=== PATIENT | female | born 1955 | race Caucasian/White ===

== ENCOUNTER → 2016-12-22 | Outpatient (CLI) | payer MEDICARE | END | disposition home or self-care (01) | LOC: PCVCIMAG 13:29 | PROVIDERS: ATTEND Internal Medicine Cardiovascular Disease | DX: I25.10 Atherosclerotic heart disease of native coronary artery without angina pectoris (principal); I10 Essential (primary) hypertension; E78.5 Hyperlipidemia, unspecified; I73.9 Peripheral vascular disease, unspecified; I65.23 Occlusion and stenosis of bilateral carotid arteries | CPT/HCPCS: 80061; 93005; 93880; G0463 ==

== ENCOUNTER → 2017-01-22 | Outpatient (CLI) | payer MEDICARE ==
[~2017-01-22] MED LIST: AMINOPHYLLINE 250 MG/10 ML VIAL. ONE; REGADENOSON 0.4 MG/5 ML DISP.SYRIN. IV ONE
== END | disposition home or self-care (01) ==
LOC: PCVCIMAG 08:09
PROVIDERS: ATTEND Internal Medicine Cardiovascular Disease
DX: I25.10 Atherosclerotic heart disease of native coronary artery without angina pectoris (principal); R07.9 Chest pain, unspecified; I73.9 Peripheral vascular disease, unspecified; I10 Essential (primary) hypertension; I70.1 Atherosclerosis of renal artery; Z95.820 Peripheral vascular angioplasty status with implants and grafts; Z95.5 Presence of coronary angioplasty implant and graft
CPT/HCPCS: 76770; 78452; 93017; 93925; 93975; 93978; A9500; J0280; J2785

== ENCOUNTER → 2018-03-29 | Outpatient (CLI) | payer MEDICARE | END | disposition home or self-care (01) | LOC: PCVCIMAG 12:35 | DX: I08.1 Rheumatic disorders of both mitral and tricuspid valves (principal); I25.810 Atherosclerosis of coronary artery bypass graft(s) without angina pectoris; I10 Essential (primary) hypertension; I77.9 Disorder of arteries and arterioles, unspecified; E78.5 Hyperlipidemia, unspecified; I73.9 Peripheral vascular disease, unspecified; I70.1 Atherosclerosis of renal artery; I48.0 Paroxysmal atrial fibrillation; Z95.1 Presence of aortocoronary bypass graft; Z87.891 Personal history of nicotine dependence; Z79.899 Other long term (current) drug therapy; Z79.82 Long term (current) use of aspirin | CPT/HCPCS: 80061; 93005; 93306; G0463 ==

== ENCOUNTER → 2018-06-04 | Outpatient (CLI) | payer MEDICARE | END | disposition home or self-care (01) | LOC: PCVCIMAG 09:02 | DX: I25.10 Atherosclerotic heart disease of native coronary artery without angina pectoris (principal); I10 Essential (primary) hypertension; E78.5 Hyperlipidemia, unspecified; I77.9 Disorder of arteries and arterioles, unspecified; I73.9 Peripheral vascular disease, unspecified; I70.1 Atherosclerosis of renal artery; R07.89 Other chest pain; R06.02 Shortness of breath; Z95.1 Presence of aortocoronary bypass graft; Z87.891 Personal history of nicotine dependence; Z79.899 Other long term (current) drug therapy; Z79.82 Long term (current) use of aspirin | CPT/HCPCS: 36415; 76770; 93005; 93926; 93975; G0463 ==

== ENCOUNTER → 2018-06-08 | Outpatient (CLI) | payer MEDICARE ==
[~2018-06-08] MED LIST changes: -AMINOPHYLLINE 250 MG/10 ML VIAL. ONE; +CLOPIDOGREL BISULFATE 75 MG TABLET; +DIAZEPAM 10 MG TABLET.; +EPTIFIBATIDE BOLUS 2,000 MCG/ML 10ML VIAL. IV; +HEPARIN SODIUM 5,000 UNIT/ML VIAL for PCVC.; +HEPARIN for ARTERIAL LINE 1,500 ML; +HYDROcodone/APAP 5/325MG 1 TAB TABLET; +IODIXANOL 270 MG/ML 100 ML VIAL.; +IOHEXOL 350 MG/ML 100 ML VIAL.; +IV NORMAL SALINE 1000ML BAG 1,000 ML; +LIDOCAINE 1%/EPI 1:100,000 20 ML VIAL.; +MIDAZOLAM HCL/PF 2 MG/2 ML VIAL.; -REGADENOSON 0.4 MG/5 ML DISP.SYRIN. IV ONE; +WATER FOR INJECTION,STERILE 20 ML VIAL. IJ; +ceFAZolin SODIUM 1 GM VIAL; +fentaNYL PF VIAL 100 MCG/2 ML VIAL; +hydrALAZINE 20 MG/ML VIAL.
== END | disposition home or self-care (01) ==
LOC: PCVCINTER 09:46
DX: I70.248 Atherosclerosis of native arteries of left leg with ulceration of other part of lower leg (principal); L97.828 Non-pressure chronic ulcer of other part of left lower leg with other specified severity; I25.10 Atherosclerotic heart disease of native coronary artery without angina pectoris; I70.291 Other atherosclerosis of native arteries of extremities, right leg; I70.1 Atherosclerosis of renal artery; I10 Essential (primary) hypertension; Z95.1 Presence of aortocoronary bypass graft; I47.1 Supraventricular tachycardia; Z87.891 Personal history of nicotine dependence; I48.0 Paroxysmal atrial fibrillation; Z72.89 Other problems related to lifestyle; E78.5 Hyperlipidemia, unspecified
CPT/HCPCS: 36251; 36252; 37246; 75716; 76937; 93459; 99152; 99153; C1725; C1751; C1760; C1769; C1887; C1894; J0360; J0690; J1327; J1644; J2250; J3010; J3490; J7030; Q9967